=== PATIENT | male | born 1975 | race Caucasian/White ===

== ENCOUNTER 2021-08-16 23:28 | Emergency (ER) | payer SELFPAY ==
[~2021-08-16 23:28] MED LIST: INDOCIN25 MG PO; NAPROXEN500 MG PO
[2021-08-16] MEDS ORDERED: FLEXERIL5 MG PO (23:58)
== END 2021-08-17 00:24 | disposition home or self-care (01) ==
LOC: FER 23:28
DX: S16.1XXA Strain of muscle, fascia and tendon at neck level, initial encounter (principal); I10 Essential (primary) hypertension; F17.200 Nicotine dependence, unspecified, uncomplicated; X50.0XXA Overexertion from strenuous movement or load, initial encounter; Y92.89 Other specified places as the place of occurrence of the external cause; Y99.0 Civilian activity done for income or pay; Z28.310 Unvaccinated for COVID-19
CPT/HCPCS: 99283

== ENCOUNTER 2021-10-06 02:51 | Emergency (ER) | payer OTHER ==
[~2021-10-06 02:51] MED LIST changes: +FLEXERIL5 MG PO
[2021-10-06] MEDS ORDERED: COLCHICINE0.6 M1 PO (03:41)
[2021-10-06] MEDS ORDERED: NORCO 5-325 TA1 EACH PO (03:41)
[2021-10-06] MEDS ORDERED: INDOCIN25 MG PO (03:43)
[2021-10-06] MEDS ORDERED: MEDROL 4MG DOSEP4 MG PO (03:43)
== END 2021-10-06 04:00 | disposition home or self-care (01) ==
LOC: FER 02:51
DX: M10.9 Gout, unspecified (principal); F17.200 Nicotine dependence, unspecified, uncomplicated; I10 Essential (primary) hypertension; Z28.310 Unvaccinated for COVID-19
CPT/HCPCS: 73560; J2920